=== PATIENT | male | born 1940 | race Caucasian/White ===

== ENCOUNTER 2022-08-19 17:14 | Outpatient (NON) | payer OTHER, SELFPAY ==
[2022-08-19 17:48] LABS: Appearance Urine Clear (Clear); Bacteria Urine None Seen /hpf; Bilirubin Urine Negative (Negative); Blood Urine Negative (Negative); Color Urine Dark Yellow (Yellow); Glucose Urine UA Negative (Negative); Ketones Urine Trace mg/dL (Negative); Leukocyte Esterase Ur Negative LEU/UL (Negative); Nitrate Urine Negative (Negative); Non Pathogenic Casts 0-2; Protein Urine Trace mg/dL (Negative); RBC Urine 0-2 /hpf (0-2); Specific Grav Ur 1.029 (1.001-1.035); Squamous Epithelial Cell Urine None seen /hpf (Few); WBC Urine 0-5 /hpf
[2022-08-19 18:04] LABS: Add Urine Microscopic? YES
== END 2022-08-19 17:15 | disposition home or self-care (01) ==
PROVIDERS: PCP Family Medicine; Visit Provider Otolaryngology
DX: C00.9 Malignant neoplasm of lip, unspecified (principal); Z52.11 Skin donor, autologous; Z48.3 Aftercare following surgery for neoplasm; Z48.298 Encounter for aftercare following other organ transplant
CPT/HCPCS: 81001

== ENCOUNTER 2022-10-09 15:54 | Emergency (ER) | payer OTHER, SELFPAY ==
[2022-10-09] VITALS (7 sets, daily range): BP systolic 109–143; BP diastolic 61–77; PULSE 91–120; RESP 14–30; TEMP 36.4; O2SAT 96–98
--- NOTE | 2022-10-09 16:18 | ED.EPISTAXIS ---
HPI - Epistaxis General Chief complaint: Epistaxis Stated complaint: epistaxis Time Seen by Provider: 10/09/22 16:04 History of Present Illness HPI Narrative: 82-year-old male presented to the ED for evaluation of significant epistaxis. 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 Patient states just prior to arrival he had significant bleeding from his nose. Related Data Allergies Allergy/AdvReac Type Severity Reaction Status Date / Time No Known Allergies Allergy Mild Verified 10/09/22 16:03 Review of Systems Review of Systems: All systems reviewed & are unremarkable except as noted in HPI and below Exam Narrative: APPEARANCE: Distress secondary to epistaxis HEAD: normocephalic, atraumatic. EYES: PERRLA/EOMI, conjunctivae clear. NOSE: Bleeding from nares bilaterally and reconstructed septum EARS:TMS clear with good light reflex. THROAT: Bleeding in posterior pharynx NECK: Supple. No adenopathy, no masses. RESPIRATORY: Airway patent, respirations nonlabored. Clear to auscultation bilaterally, no rales, rhonchi, wheezing. CARDIOVASCULAR: Regular rate and rhythm without murmurs rubs or gallops. ABDOMINAL: Soft, nontender, nondistended, normal bowel sounds MUSCULOSKELETAL: Moves all extremities. Strength/ROM intact, No edema, No calf tenderness. NEURO: Alert. Cranial nerves II through XII intact. Grossly intact SKIN: Warm, dry. Normal Color Course Course Emergency Course: Discussed case with Dr. Price at [place] and he stated that a Rhino Rocket could be placed as needed. Rhino Rocket was placed in the right nare and large amount of clot was dislodged into the posterior pharynx. Unable to place Rhino Rocket in left nare. Patient did have some bleeding from the nasal septum. TXA soaked gauze was placed onto this. Dr price accepted the patient and Dr Rodríguez from ENT acute findings was also updated on the patient's status and the persistent bleeding. Prior to transfer patient's heart rate was 100 with a blood pressure of 130/77. Patient hemoglobin upon arrival to the ED was 11.7. In order to facilitate transport patient is being transported by flight. Patient and family were updated on the plan for transport to [place]. All questions concerns were addressed. Vital Signs Vital signs: Vital Signs Temperature 97.6 F 10/09/22 15:56 Pulse Rate 98 10/09/22 15:56 Respiratory Rate 22 H 10/09/22 15:56 Blood Pressure 143/76 H 10/09/22 15:56 Pulse Oximetry 96 10/09/22 15:56 Oxygen Delivery Room Air 10/09/22 15:56 Temperature 97.6 F 10/09/22 15:56 Pulse Rate 98 10/09/22 15:56 Respiratory Rate 22 H 10/09/22 15:56 Blood Pressure 143/76 H 10/09/22 15:56 Pulse Oximetry 96 10/09/22 15:56 Oxygen Delivery Room Air 10/09/22 15:56 Procedures Epistaxis Control right: Time Out Performed: Yes Direct Inspection: unable to visualize Clots Removed by: suction Cautery Used: none Device Inserted: hemostatic balloon Device Size: 75 Patient Tolerated Procedure: no complications Complications: continued epistaxis MDM - Epistaxis Lab Data Attestation: I reviewed the patient's lab results. 10/09/22 16:20 10/09/22 16:20 Labs: Lab Results 10/09/22 10/09/22 Range/Units 16:20 16:28 WBC 7.2 (4.5-10.0) K/mm3 RBC 4.05 L (4.6-6.20) M/mm3 Hgb 11.7 L (14.0-18.0) g/dL Hct 36.3 L (42.0-52.0) % MCV 89.6 (80-100) fl MCH 28.9 (26-34) pg MCHC 32.2 (32-36) g/dl RDW 14.0 (11.5-14.5) % Plt Count 296 (150-375) k/mm3 MPV 9.6 (7.4-10.4) fl Immature Gran % (Auto) 0.3 (0-0.5) % Neut % (Auto) 52.5 (45.5-73.1) % Lymph % (Auto) 32.1 (18.3-44.2) % Tama % (Auto) 10.6 H (2.6-8.5) % Eos % (A
[2022-10-09 16:25] LABS: Basophils Absolute Auto 0.1 K/mm3 (0.0-0.1); Basophils Percent Auto 0.7 % (0.2-1.2); Eosinophils Absolute Auto 0.3 K/mm3 (0-0.3); Eosinophils Percent Auto 3.8 % (0-4.4); Hematocrit 36.3 % (42.0-52.0); Hemoglobin 11.7 g/dL (14.0-18.0); Immature Granulocyte Absolute 0.02 K/mm3 (0.00-0.031); Immature Granulocyte Percent A 0.3 % (0-0.5); Lymphocytes Absolute Auto 2.31 K/mm3 (0.9-3.2); Lymphocytes Percent Auto 32.1 % (18.3-44.2); Mean Corpuscular HGB Conc 32.2 g/dl (32-36); Mean Corpuscular Hemoglobin 28.9 pg (26-34); Mean Corpuscular Volume 89.6 fl (80-100); Mean Platelet Volume 9.6 fl (7.4-10.4); Monocytes Absolute Auto 0.8 K/mm3 (0.1-0.6); Monocytes Percent Auto 10.6 % (2.6-8.5); Neutrophils Absolute Auto 3.8 K/mm3 (1.3-6.7); Neutrophils Percent Auto 52.5 % (45.5-73.1); Platelet Count Result 296 k/mm3 (150-375); Red Blood Count 4.05 M/mm3 (4.6-6.20); White Blood Count 7.2 K/mm3 (4.5-10.0)
[2022-10-09 16:42] LABS: INR 1.1; Prothrombin Time 14.7 Seconds (11.1-14.7)
[2022-10-09 16:44] LABS: Alanine Aminotransferase 21 U/L (6-50); Alkaline Phosphatase 106 U/L (38-126); Anion Gap 8 mmol/L (8-16); Aspartate Amino Transferase 20 U/L (17-59); Bilirubin,Total 0.4 mg/dL (0.2-1.3); Blood Urea Nitrogen 29 mg/dL (9-20); Calcium 8.8 mg/dL (8.4-10.2); Carbon Dioxide 26 mmol/L (22-30); Chloride 103 mmol/L (98-107); Estimated Glomerular Filt Rate > 60; Glucose 117 mg/dL (65-110); Sodium 137 mmol/L (137-145)
[2022-10-09] MEDS: TRANEXAMIC ACID 1,000 MG/10 ML AMPUL 1000 MG TOPICAL (16:54)
--- NOTE | 2022-10-09 17:07 | PC.NURSE ---
pt accepted to [facility] accepted eta 8min
== END 2022-10-09 17:32 | disposition short-term general hospital (02) ==
PROVIDERS: Emergency Provider Emergency Medicine
DX: R04.0 Epistaxis (principal)
CPT/HCPCS: 30901; 36415; 80053; 85025; 85610; 85730; 86850; 86880; 86900; 86901; 86902; 99283; 99285

== ENCOUNTER 2024-12-20 13:37 | Emergency (ER) | payer OTHER, SELFPAY ==
--- NOTE | ~2024-12-20 | XR_ITS ---
XR chest 2V Ordering provider: Teja Holt APRN History: 84 years Male with . cough . Comparison: None. FINDINGS: MEDIASTINUM: The cardiac silhouette is not enlarged. LUNGS: No infiltrates, effusions or pneumothorax. OTHER: No free air under the diaphragm. Degenerative changes of the spine. Dextroscoliosis. IMPRESSION: No acute cardiopulmonary pathology. Reviewed, dictated and finalized at location A.
[2024-12-20 13:50] VITALS: BP 142/68; PULSE 92; RESP 16; TEMP 37.3; O2SAT 98
--- NOTE | 2024-12-20 14:05 | ED.GENADULT ---
HPI - General Adult General Chief complaint: Upper Respiratory Infection Stated complaint: Lung Congestion, Cough Time Seen by Provider: 12/20/24 13:41 Source: patient Mode of arrival: ambulatory Limitations: no limitations History of Present Illness HPI narrative: patient is an 10-year-old male presenting with his for evaluation of cough. Cough began on Wednesday. Cough is worse at night when supine. He denies any constitutional symptoms. He denies any additional URI symptoms. No treatment initiated prior to arrival. States he went to [facility] prior to coming here and was told to come here for a chest x-ray. He does not want COVID or flu testing. No additional complaints. Related Data Home Medications ?Medication ?Instructions ?Recorded ?Confirmed ?Last Taken ?Type minocycline 100 mg capsule mg 12/20/24 Unknown History Allergies Allergy/AdvReac Type Severity Reaction Status Date / Time No Known Allergies Allergy Mild Verified 12/20/24 13:54 Review of Systems Review of Systems: CONSTITUTIONAL: Denies body aches, fever, chills, or sweats. EYES: Denies visual changes, redness, or discharge. ENT: Denies rhinorrhea, congestion, sore throat, or otalgia. CARDIOVASCULAR: Denies chest pain, palpitations, or edema. RESPIRATORY: reports cough denies dyspnea. GASTROINTESTINAL: Denies abdominal pain, nausea, vomiting, or diarrhea. GENITOURINARY: Denies dysuria or hematuria. SKIN: Denies rash, itching, or wounds. MUSCULOSKELETAL: Denies back pain, joint pain, or myalgia. NEUROLOGIC: Denies headache, numbness, tingling, or weakness. PSYCH: Denies depression or anxiety. All systems reviewed & are unremarkable except as noted in HPI and below Exam Narrative: GENERAL: Well-appearing, well-nourished, and in no acute distress. HEAD: Normocephalic, atraumatic. EYES: EOMI. No redness or drainage. Conjunctivae normal. ENT: Mucous membranes pink and moist. Nares clear. No rhinorrhea. moderate amount of clear, postnasal drainage. TMs normal bilaterally. Throat normal. Uvula midline. NECK: Normal AROM. Supple. No lymphadenopathy. CHEST: No respiratory distress. Clear to auscultation. HEART: Regular rate and rhythm. No murmur appreciated. Normal peripheral pulses. ABDOMEN: Soft, nontender, nondistended, normal active bowel sounds. MUSCULOSKELETAL: No bony tenderness. EXTREMITIES: Normal range of motion. No edema. SKIN: Warm, dry, no rash. Capillary refill normal. Normal skin turgor. NEURO: No focal deficits. Alert and oriented x3. Gait steady. PSYCH: Normal affect. No signs of depression or anxiety. Course Course Level of Care: Express Care Visit Vital Signs Vital signs: Vital Signs Temperature 99.2 F 12/20/24 13:50 Pulse Rate 92 12/20/24 13:50 Respiratory Rate 16 12/20/24 13:50 Blood Pressure 142/68 H 12/20/24 13:50 Pulse Oximetry 98 12/20/24 13:50 Oxygen Delivery Room Air 12/20/24 13:50 Temperature 99.2 F 12/20/24 13:50 Pulse Rate 92 12/20/24 13:50 Respiratory Rate 16 12/20/24 13:50 Blood Pressure 142/68 H 12/20/24 13:50 Pulse Oximetry 98 12/20/24 13:50 Oxygen Delivery Room Air 12/20/24 13:50 Medical Decision Making Vital Signs Vital Signs: Vital Signs Temperature 99.2 F 12/20/24 13:50 Pulse Rate 92 12/20/24 13:50 Respiratory Rate 16 12/20/24 13:50 Blood Pressure 142/68 H 12/20/24 13:50 Pulse Oximetry 98 12/20/24 13:50 Oxygen Delivery Room Air 12/20/24 13:50 Temperature 99.2 F 12/20/24 13:50 Pulse Rate 92 12/20/24 13:50 Respiratory Rate 16 12/20/24 13:50 Blood Pressure 142/68 H 12/20/24 13:50 Pulse Oximetry 98 12/20/24 13:50 Oxygen Delivery Room Air 12/20/24 13:50 Imaging Data Attestation: I personally reviewed and interpreted this imaging study as follows: My impression: NAD Discharge Plan Discharge Clinical Impression: Post-nasal drip, Dextroscoliosis, Elevated blood pressure reading in office without diagnosis of hypertension Cough Qualifiers: Cough type: acute Qualified Code(s): R05.1 - Acute cough Degenerative arthritis of spine Qualifiers: Spinal region: unspecified Spinal osteoarthritis complication: without myelopathy or radiculopathy Qualified Code(s): 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
== END 2024-12-20 14:48 | disposition home or self-care (01) ==
PROVIDERS: Emergency Provider Registered Nurse
DX: R09.82 Postnasal drip (principal); M41.80 Other forms of scoliosis, site unspecified; R03.0 Elevated blood-pressure reading, without diagnosis of hypertension; R05.1 Acute cough; M47.819 Spondylosis without myelopathy or radiculopathy, site unspecified
CPT/HCPCS: 71046; 99213; G0463